=== PATIENT | female | born 1950 | race Caucasian/White ===

== ENCOUNTER 2018-10-18 13:48 | Inpatient (IN) | payer MEDICARE, BC ==
[~2018-10-18] VITALS: Ht 165.1 cm; Wt 113.2 kg
[2018-10-18 14:26] LABS: BASOPHILS ABSOLUTE AUTO 0.06 K/mm3 (0.00-0.23); BASOPHILS PERCENT AUTO 1 % (0-2); EOSINOPHILS ABSOLUTE AUTO 0.07 K/mm3 (0.00-0.68); EOSINOPHILS PERCENT AUTO 1 % (0-6); Hemoglobin 7.9 g/dL (11.5-16.0); IMMATURE GRAN ABSOLUTE AUTO 0.03 K/mm3 (0.00-0.10); IMMATURE GRAN PERCENT AUTO 0 % (0-1); LYMPHOCYTES ABSOLUTE AUTO 1.72 K/mm3 (0.84-5.20); LYMPHOCYTES PERCENT AUTO 17 % (21-46); MONOCYTES ABSOLUTE AUTO 1.41 K/mm3 (0.16-1.47); MONOCYTES PERCENT AUTO 14 % (4-13); Mean Corpuscular HGB Conc 29.3 g/dL (31.5-36.5); Mean Corpuscular Volume 79 fL (80-100); Mean Platelet Volume 9.3 fL (9.1-12.4); NEUTROPHILS PERCENT AUTO 67 % (41-73); Platelet Count 154 K/mm3 (150-400); RDW Coefficient Variation 20.2 % (11.7-14.2); RDW Standard Deviation 56.6 fL (35.1-46.3); Red Blood Cell Count 3.44 M/mm3 (3.80-5.20); White Blood Cell Count 10.09 K/mm3 (4.00-11.30)
[2018-10-18] MEDS ORDERED: Humalog100 UNIT/3 SC (14:51)
[2018-10-18] MEDS ORDERED: Glucophage1000 MG PO (14:52)
[2018-10-18] MEDS ORDERED: OMEPRAZOLE20 MG PO (14:52)
[2018-10-18] MEDS ORDERED: INSDET100 (14:52)
[2018-10-18] MEDS ORDERED: METO25ER PO (14:52)
[2018-10-18] MEDS ORDERED: ATOR10 (14:53)
[2018-10-18] MEDS ORDERED: ASPI325 PO (14:53)
[2018-10-18] MEDS ORDERED: LEVSOD25 PO (14:53)
[2018-10-18] MEDS ORDERED: SERT100 PO (14:53)
[2018-10-18] MEDS ORDERED: NITRSPRAY SL (14:54)
[2018-10-18] MEDS ORDERED: CENTRUM SILVER1 EAC2 PO (14:54)
[2018-10-18] MEDS ORDERED: VITAMIN D31000 UNIT PO (14:54)
[2018-10-18 15:14] LABS: Alanine Aminotransfer (ALT/SGP 35 U/L (12-78); Albumin, Blood 2.6 g/dL (3.4-5.0); Albumin/Globulin Ratio 0.6 (0.8-1.8); Alk Phos 79 U/L (50-136); Anion Gap 9 mmol/L (6-16); Aspartate Aminotrans (AST/SGOT 82 U/L (12-37); Bilirubin, Total 1.1 mg/dL (0.1-1.0); Blood Urea Nitrogen 12 mg/dL (8-24); Bun/Creatinine Ratio 19.3 (12.0-20.0); CO2, Blood 25 mmol/L (21-32); Calcium, Blood 8.4 mg/dL (8.5-10.1); Chloride, Blood 106 mmol/L (98-108); Creatinine, Blood 0.62 mg/dL (0.40-1.00); Globulin, Blood 4.2 g/dL (2.2-4.0); Glomerular Filtration Rate >60 (60-); Glucose, Blood 109 mg/dL (70-99); Potassium, Blood 3.9 mmol/L (3.5-5.5); Sodium, Blood 140 mmol/L (136-145); Total Protein, Blood 6.8 g/dL (6.4-8.2)
[2018-10-18 15:59] LABS: Bilirubin, Urine Neg (Neg); Blood, Urine 1+ (Neg); Glucose Qualitative, Urine Neg (Neg); Ketones, Urine 3+ (Neg); Leukocyte Esterase, Urine 3+ (Neg); Nitrite, Urine Pos (Neg); Protein, Urine 2+ (Neg); Specific Gravity, Urine 1.015 (1.003-1.022); Urobilinogen, Urine NORM (Normal)
[2018-10-18 16:09] LABS: Appearance, Urine Hazy (Clear); Color, Urine Yellow (P-Yellow)
[2018-10-18 16:10] LABS: Bacteria Many /hpf; Mucus Heavy (0-Heavy); Red Blood Cells, Urine 0-2 /hpf (0-2); Squamous Epithelial Cells Few /hpf (Few); White Blood Cells, Urine 25-50 /hpf (0-5)
[2018-10-18 19:28] LABS: Hemoglobin 7.5 g/dL (11.5-16.0)
[2018-10-18 19:40] LABS: Thyroid Stimulating Hormone 3.3 uIU/mL (0.360-4.800)
[2018-10-18 19:44] LABS: Troponin I 1.17 ng/mL (0.000-0.040)
[2018-10-18 19:51] LABS: Percent Saturation 5.7 % (15.0-50.0)
[2018-10-18] MEDS ORDERED: GLIP10 PO (21:57)
[2018-10-18] MEDS ORDERED: Isosorbide Mono30 MG PO (21:57)
--- NOTE | 2018-10-18 23:19 | NUR ---
ASSUMED CARE OF PATIENT AT [facility] 2019 FROM ED RN MYLA Zuleta RN. PATIENT ALERT AND ORIENTED. PATIENT TRANSFER VIA SLIDE SHEET AND 3 STAFF. PATIENT WEAK; L ANKLE FX WITH SPLINT IN PLACE; BEDREST. PATIENT REPORTS PAIN IN L ANKLE AND HEADACHE; MEDICATED PER EMAR; GOOD RESULTS 7 TO A 3. L ANKLE ELEVATED. PATIENT REPORTS MULTIPLE FALLS AT HOME; 3 IN PAST TWO DAYS; HIT HEAD AND HURT ANKLE; S/S CONSULT BECAUSE PATIENT REPORTS SHE NEEDS ASSISTANCE AT HOME; CANNOT GET UP WITHOUT ASSISTANCE; IN 70S FRAIL HIMSELF PER PATIENT. ST ON TELE; OXYGEN SATURATION ABOVE 90% ON ROOM AIR OR CPAP. PATIENT CURRENTLY RECIEVING ONE UNIT RBC; THIS RN STAYED IN ROOM FOR FIRST 15 MINUTES DURING TRANFUSION; NO S/S OF REACTION NOTED; ADMISSION COMPLETED. PATIENT REPORTS INCONTINENT AT BASELINE; ATTENDS IN PLACE; PATIENT TO CALL IF SHE NEEDS NEW ATTENDS. PATIENT CURRENTLY RESTING IN BED; CALL LIGHT IN REACH; BED IN LOWEST POSISTION; BED ALARM ON; WILL CONTINUE TO MONITOR AND ASSESS UNTIL END OF SHIFT.
[2018-10-19 02:26] LABS: Hematocrit 25.8 % (33.0-51.0); Hemoglobin 8.1 g/dL (11.5-16.0)
[2018-10-19 04:13] LABS: International Normalized Ratio 1.24; Prothrombin Time Results 12.9 Sec (9.7-11.5)
--- NOTE | 2018-10-19 06:35 | NUR ---
CALLED DR. ROSS LAST NIGHT TO REPORT ELEVATED TROPONIN; SEE INTERVENTION; ORDERS RECIEVED FOR HEPARIN GTT. PATIENT SLEPT ABOUT SIX HOURS. VSS. WILL CONTINUE TO MONITOR AND ASSESS UNTIL END OF SHIFT.
[2018-10-19 06:37] LABS: BASOPHILS ABSOLUTE AUTO 0.06 K/mm3 (0.00-0.23); BASOPHILS PERCENT AUTO 1 % (0-2); EOSINOPHILS ABSOLUTE AUTO 0.12 K/mm3 (0.00-0.68); EOSINOPHILS PERCENT AUTO 1 % (0-6); Hematocrit 25.2 % (33.0-51.0); Hemoglobin 7.7 g/dL (11.5-16.0); IMMATURE GRAN ABSOLUTE AUTO 0.07 K/mm3 (0.00-0.10); IMMATURE GRAN PERCENT AUTO 1 % (0-1); LYMPHOCYTES ABSOLUTE AUTO 1.66 K/mm3 (0.84-5.20); LYMPHOCYTES PERCENT AUTO 16 % (21-46); MONOCYTES ABSOLUTE AUTO 1.54 K/mm3 (0.16-1.47); MONOCYTES PERCENT AUTO 15 % (4-13); Mean Corpuscular HGB 23.8 pg (26.0-34.0); Mean Corpuscular HGB Conc 30.6 g/dL (31.5-36.5); Mean Corpuscular Volume 78 fL (80-100); Mean Platelet Volume 8.9 fL (9.1-12.4); NEUTROPHILS ABSOLUTE AUTO 7.11 K/mm3 (1.96-9.15); NEUTROPHILS PERCENT AUTO 67 % (41-73); NRBC ABSOLUTE 0.05 K/mm3 (0.00-0.02); NRBC Auto 0.5 /100 WBC (0.0-0.2); Platelet Count 138 K/mm3 (150-400); RDW Coefficient Variation 19.4 % (11.7-14.2); RDW Standard Deviation 53.2 fL (35.1-46.3); Red Blood Cell Count 3.24 M/mm3 (3.80-5.20); White Blood Cell Count 10.56 K/mm3 (4.00-11.30)
[2018-10-19 06:54] LABS: Anion Gap 9 mmol/L (6-16); Blood Urea Nitrogen 15 mg/dL (8-24); Bun/Creatinine Ratio 27.3 (12.0-20.0); CO2, Blood 26 mmol/L (21-32); Chloride, Blood 107 mmol/L (98-108); Creatinine, Blood 0.55 mg/dL (0.40-1.00); Glomerular Filtration Rate >60 (60-); Glucose, Blood 107 mg/dL (70-99); Potassium, Blood 3.8 mmol/L (3.5-5.5); Sodium, Blood 142 mmol/L (136-145)
--- NOTE | 2018-10-19 08:41 | NUR ---
here to see the patient.
[2018-10-19 10:33] LABS: Hematocrit 25.3 % (33.0-51.0); Hemoglobin 7.8 g/dL (11.5-16.0)
[2018-10-19 13:28] LABS: Hematocrit 27.7 % (33.0-51.0); Hemoglobin 8.8 g/dL (11.5-16.0)
--- NOTE | 2018-10-19 16:34 | NUR ---
The pt became dyspneic and hypoxic, spo2 85-86% from the activity of assisted rolling back and forth in bed for attends and linen change following bowel incontinence. Oxygen was applied at 2 l/min for sustained spo2 88% following recovery from the activity.
[2018-10-19 18:11] LABS: Hematocrit 28.6 % (33.0-51.0)
--- NOTE | 2018-10-19 20:31 | NUR ---
ASSUMED CARE OF PATIENT AT [facility] 190 FROM WILLY Zuleta RN. PATIENT ALERT AND ORIENTED X4. PATIENT WEAK; L ANKLE FX WITH SPLINT IN PLACE; BEDREST. PATIENT REPORTS PAIN IN L ANKLE AND HEADACHE; MEDICATED PER EMAR; GOOD RESULTS; L ANKLE ELEVATED. ST ON TELE; OXYGEN SATURATION ABOVE 90% ON 2LPM VIA NC OR CPAP. PATIENT REPORTS INCONTINENT AT BASELINE; ATTENDS IN PLACE; PATIENT TO CALL IF SHE NEEDS NEW ATTENDS. HEPARIN GTT TO BE TURNED OFF AT 0200 PER ORDER FOR EGD IN AM; PHARMACY NOTIFIED. PATIENT CURRENTLY RESTING IN BED; CALL LIGHT IN REACH; BED IN LOWEST POSISTION; BED ALARM ON; WILL CONTINUE TO MONITOR AND ASSESS UNTIL END OF SHIFT.
[2018-10-19 22:09] LABS: Hematocrit 28.2 % (33.0-51.0)
[2018-10-20 02:07] LABS: HBSAG SCREEN Negative (Negative); HEP B CORE AB, TOT Negative (Negative); HEP C VIRUS AB <0.1 (0.0-0.9)
[2018-10-20 03:40] LABS: BASOPHILS ABSOLUTE AUTO 0.07 K/mm3 (0.00-0.23); BASOPHILS PERCENT AUTO 1 % (0-2); EOSINOPHILS ABSOLUTE AUTO 0.28 K/mm3 (0.00-0.68); EOSINOPHILS PERCENT AUTO 3 % (0-6); Hematocrit 28.6 % (33.0-51.0); Hemoglobin 8.9 g/dL (11.5-16.0); IMMATURE GRAN ABSOLUTE AUTO 0.08 K/mm3 (0.00-0.10); IMMATURE GRAN PERCENT AUTO 1 % (0-1); LYMPHOCYTES ABSOLUTE AUTO 2.01 K/mm3 (0.84-5.20); LYMPHOCYTES PERCENT AUTO 19 % (21-46); MONOCYTES PERCENT AUTO 15 % (4-13); Mean Corpuscular HGB 24.7 pg (26.0-34.0); Mean Corpuscular HGB Conc 31.1 g/dL (31.5-36.5); Mean Corpuscular Volume 79 fL (80-100); Mean Platelet Volume 8.7 fL (9.1-12.4); NEUTROPHILS ABSOLUTE AUTO 6.34 K/mm3 (1.96-9.15); NEUTROPHILS PERCENT AUTO 61 % (41-73); NRBC ABSOLUTE 0.04 K/mm3 (0.00-0.02); NRBC Auto 0.4 /100 WBC (0.0-0.2); Platelet Count 147 K/mm3 (150-400); RDW Coefficient Variation 19.1 % (11.7-14.2); RDW Standard Deviation 53.7 fL (35.1-46.3); White Blood Cell Count 10.38 K/mm3 (4.00-11.30)
[2018-10-20 03:56] LABS: International Normalized Ratio 1.21; Prothrombin Time Results 12.6 Sec (9.7-11.5)
[2018-10-20 03:59] LABS: Alanine Aminotransfer (ALT/SGP 43 U/L (12-78); Albumin, Blood 2.5 g/dL (3.4-5.0); Albumin/Globulin Ratio 0.6 (0.8-1.8); Alk Phos 72 U/L (50-136); Anion Gap 7 mmol/L (6-16); Aspartate Aminotrans (AST/SGOT 104 U/L (12-37); Bilirubin, Total 1.2 mg/dL (0.1-1.0); Blood Urea Nitrogen 14 mg/dL (8-24); Bun/Creatinine Ratio 25.4 (12.0-20.0); CO2, Blood 27 mmol/L (21-32); Calcium, Blood 8.1 mg/dL (8.5-10.1); Chloride, Blood 106 mmol/L (98-108); Creatinine, Blood 0.55 mg/dL (0.40-1.00); Glomerular Filtration Rate >60 (60-); Glucose, Blood 141 mg/dL (70-99); Potassium, Blood 3.8 mmol/L (3.5-5.5); Sodium, Blood 140 mmol/L (136-145); Total Protein, Blood 6.5 g/dL (6.4-8.2)
--- NOTE | 2018-10-20 06:05 | NUR ---
EDUARD HAS BEEN NPO SINCE MIDNIGHT; HEPARIN STOPPED PER ORDER. VSS. EDUARD SLEPT ABOUT EIGHT HOURS. WILL CONINTUE TO MONITOR AND ASSESS UNTIL END OF SHIFT.
--- NOTE | 2018-10-20 08:58 | NUR ---
History, Chart, Medications and Allergies reviewed before start of procedure. Lungs clear T/O to Auscultation. Patient confirms NPO status and agrees with scheduled surgery. Pre-Op teaching done. Pt verbalizes understanding.
--- NOTE | 2018-10-20 09:46 | NUR ---
10/20/18 0945 Haroon Barakat Bite Block PlacedPatient to ENDO 1History, Chart, Medications and Allergies reviewed before start of procedure.MONITOR INTACT WITH CONTINUOUS PULSE OXIMETRY AND INTERMITTENT BP.O2 VIA N/C INTACT THROUGHOUT SEDATION/PROCEDURE.See Anesthesia record
--- NOTE | 2018-10-20 13:16 | NUR ---
The pt was incontinent of stool and a lot of urine. She states that she is incontinent at baseline. Dr. Martin was here to see the patient. New orders received. He states that the pt should be receiving a boot today which will be delivered to the hospital for her.
--- NOTE | 2018-10-20 17:08 | NUR ---
The pt was c/o difficulty breathing when I was last in the room. She was hunched over in bed, very low lying. Appeared dyspneic. Assisted to sitting on the side of the bed, dangling her legs, with pillows propped around for support and she reported "immediate relief" and appeared to be breathing better. Tylenol was given for pain in the left ankle.
--- NOTE | 2018-10-21 04:20 | NUR ---
ASSUMED CARE OF PT APPROXIMATELY 190 FROM Song AGUILERA RN. PT A&O X4; PT WEAK; L ANKLE FX W/BOOT IN PLACE; PT C/O OF PAIN AND NUMBNESS IN L ANKLE; MEDICATION GIVEN PER ORDERS AND L LEG ELEVATED ON PILLOW; PT ON BEDREST UNTIL Pt ASSESSMENT; PT C/O SOB ON NC AND PLACED ON CPAP FOR MOST OF SHIFT; SATS AT 93% ON CPAP; HEPARIN INFUSING PER ORDERS; CALL LIGHT W/IN REACH, BED IN LOWEST POSITION; WILL CONTINUE TO MONITOR AND ASSESS UNTIL HANDOFF TO DAYSCAFT RN.
--- NOTE | 2018-10-21 07:20 | NUR ---
[address] Uribe on the phone, explained that Dr. Disla has done the EGD yesterday and gave the all clear for cardiology to proceed with the patient.
[2018-10-21 08:03] LABS: Hematocrit 27.9 % (33.0-51.0); Hemoglobin 8.7 g/dL (11.5-16.0); Mean Corpuscular HGB 24.7 pg (26.0-34.0); Mean Corpuscular HGB Conc 31.2 g/dL (31.5-36.5); Mean Corpuscular Volume 79 fL (80-100); Mean Platelet Volume 9.2 fL (9.1-12.4); NRBC ABSOLUTE 0.02 K/mm3 (0.00-0.02); NRBC Auto 0.2 /100 WBC (0.0-0.2); Platelet Count 145 K/mm3 (150-400); RDW Coefficient Variation 19.4 % (11.7-14.2); RDW Standard Deviation 53.1 fL (35.1-46.3); Red Blood Cell Count 3.52 M/mm3 (3.80-5.20); White Blood Cell Count 10.06 K/mm3 (4.00-11.30)
[2018-10-21 08:28] LABS: Anion Gap 5 mmol/L (6-16); Blood Urea Nitrogen 12 mg/dL (8-24); Bun/Creatinine Ratio 26.7 (12.0-20.0); CO2, Blood 30 mmol/L (21-32); Calcium, Blood 8.2 mg/dL (8.5-10.1); Chloride, Blood 105 mmol/L (98-108); Creatinine, Blood 0.45 mg/dL (0.40-1.00); Glomerular Filtration Rate >60 (60-); Glucose, Blood 155 mg/dL (70-99); Potassium, Blood 3.7 mmol/L (3.5-5.5); Sodium, Blood 140 mmol/L (136-145)
--- NOTE | 2018-10-21 09:28 | NUR ---
The pt states that she is incontinent of urine at baseline. STates that she "dribbles all the time" and wears adult diapers at home due to this. States she would not be able to use a bedpan for measuring urine as she cannot control nor sense urination.
--- NOTE | 2018-10-21 10:48 | NUR ---
Call from heart Aguila that the pt is returning to her room, no interventions.
--- NOTE | 2018-10-21 11:17 | NUR ---
RIGHT RADIAL SITE CHECKED UPON RETURN AND AT EVERY INTERVAL WITH VITAL SIGNS. NO CHANGES FROM INITIAL CHECK OF NO BLEEDING, NO BRUISING, NO SWELLING, NO HEMATOMA, AND PT STATES NO DISCOMFORT. DISTAL PULSE PALPABLE, FINGERS WARM, PINK AND DRY.
--- NOTE | 2018-10-21 13:50 | NUR ---
The pt is much more awake now. She is talking with her who is at the bedside. Vital signs have been stable. TR band on the right wrist remains undeflated, and no signs of bleeding, hematoma, bruising, swelling or impaired circulation. Dital pulse palpable, fingers are pink and warm. The pt denies any pain.
--- NOTE | 2018-10-21 15:10 | NUR ---
TR band deflation started. total of 4 cc removed slowly from the band so far.
--- NOTE | 2018-10-21 15:32 | NUR ---
ADDITIONAL 2 CC REMOVED FROM TR BAND; NO BLEEDING, NO HEMATOMA. BRUISING IS BECOMING VISIBLE ON THE MEDIAL ASPECT, ANTERIOR WRIST UNDERNEATH THE TR BAND. FINGERS ARE PINK, WARM, PULSES PALPABLE. PT DENIES ANY PAIN IN HER RIGHT EXTREMITY. TYLENOL WAS GIVEN EARLIER FOR C/O PAIN IN HER LEFT ANKLE.
--- NOTE | 2018-10-21 16:52 | NUR ---
TR band was removed 1 hour after deflation completed. Apparent bruising under the TR band was not in fact bruising, but just a scant amount of blood under the band. NO bruising, no hematoma, no swelling, no bleeding.
--- NOTE | 2018-10-21 18:08 | NUR ---
summary The pt went for angiogram this morning, returning to her room around 11 am. Vital signs have been stable, and the right wrist access site is recovered, and within normal limits. Clear tegederm dressing was applied to the site after cleansing with cholohexidine at the time of removal of the TR band. The pt worked with physical therapy today, and was able to sit on the side of the bed.She was not successful at standing as the forced immobility of the right arm at the time (post angiogram) and non-weight bearing on the left leg, as well as her dyspnea and weakness made for a challenging combination for mobilization. She has been incontinent of both urine and bowel today. She is able to request the bedpan for bowel, but has poor control of her bowels, even at baseline, she tells me, and has baseline continual urinary incontinence. Appetite fair.
--- NOTE | 2018-10-22 03:19 | NUR ---
ASSUMED CARE OF PT APPROXIMATELY 1909 FROM WILLY RN; R ARM BOARD IN PLACE FOLLOWING TR BAND REMOVAL; NO ACUTE CHANGES; PT STATED SHE WAS TIRED FROM THE DAYS EVENTS; PT IS PLEASANT AND COMPLIANT W/ CARE; PT SLEPT WELL BETWEEN INTERVENTIONS; BED IN LOWEST POSITION; CALL LIGHT W/IN REACH; WILL CONTINUE TO MONITOR AND ASSESS UNTIL HANDOFF TO DAY SHIFT RN.
[2018-10-22 04:26] LABS: BASOPHILS ABSOLUTE AUTO 0.06 K/mm3 (0.00-0.23); BASOPHILS PERCENT AUTO 1 % (0-2); EOSINOPHILS ABSOLUTE AUTO 0.26 K/mm3 (0.00-0.68); EOSINOPHILS PERCENT AUTO 3 % (0-6); Hematocrit 27.8 % (33.0-51.0); Hemoglobin 8.4 g/dL (11.5-16.0); IMMATURE GRAN ABSOLUTE AUTO 0.05 K/mm3 (0.00-0.10); IMMATURE GRAN PERCENT AUTO 1 % (0-1); LYMPHOCYTES ABSOLUTE AUTO 1.14 K/mm3 (0.84-5.20); LYMPHOCYTES PERCENT AUTO 12 % (21-46); MONOCYTES PERCENT AUTO 15 % (4-13); Mean Corpuscular HGB 24.7 pg (26.0-34.0); Mean Corpuscular HGB Conc 30.2 g/dL (31.5-36.5); Mean Corpuscular Volume 82 fL (80-100); Mean Platelet Volume 8.6 fL (9.1-12.4); NEUTROPHILS ABSOLUTE AUTO 6.27 K/mm3 (1.96-9.15); NEUTROPHILS PERCENT AUTO 68 % (41-73); Platelet Count 127 K/mm3 (150-400); RDW Standard Deviation 56.1 fL (35.1-46.3); White Blood Cell Count 9.18 K/mm3 (4.00-11.30)
[2018-10-22 04:52] LABS: Anion Gap 5 mmol/L (6-16); Blood Urea Nitrogen 15 mg/dL (8-24); Bun/Creatinine Ratio 28.9 (12.0-20.0); CO2, Blood 31 mmol/L (21-32); Calcium, Blood 8.1 mg/dL (8.5-10.1); Chloride, Blood 104 mmol/L (98-108); Cholesterol 90 mg/dL (50-200); Creatinine, Blood 0.52 mg/dL (0.40-1.00); Glomerular Filtration Rate >60 (60-); Glucose, Blood 172 mg/dL (70-99); HDL Cholesterol 44 mg/dL (>39); LDL/HDL RATIO 0.8; Low Density Lipoprotein Chol 36 mg/dL (0-110); Sodium, Blood 140 mmol/L (136-145); Triglycerides 51 mg/dL (30-160); Very Low Density Lipoprot Chol 10 mg/dL (6-32)
[2018-10-22 07:45] LABS: Alanine Aminotransfer (ALT/SGP 43 U/L (12-78); Aspartate Aminotrans (AST/SGOT 64 U/L (12-37)
--- NOTE | 2018-10-22 18:52 | NUR ---
SHIFT SUMMARY PT HAS DENIED CHEST PAIN THIS SHIFT. SHE REMAINS WEAK. SHE IS A 2 PERSON ASSIST. PT MEDICAL STATUS AT THIS TIME. VSS. WILL MONITOR UNTIL REPORT TO ONCOMING RN.
--- NOTE | 2018-10-23 06:41 | NUR ---
SHIFT SUMMARY PATIENT PLEASENT AND COOPERATIVE THROUGHOUT THE NIGHT. PATIENT MEDICATED FOR PAIN PER EMAR. PATIENT APPEARED TO SLEEP WELL LAST NIGHT. PATIENT USED HER CPAP THROUGHOUT THE NIGHT, CONTINUOUS BIOX IN PLACE. BOOT IN PLACE TO LEFT FOOT. PATIENT CURRENTLY RESTING IN BED AND WATCHING TV THIS MORNING, PATIENT DENIES ANY NEEDS. BED IN LOW, LOCKED POSITION, AND CALL LIGHT WITHIN REACH. WILL CONTINUE TO MONITOR PATIENT AND REPORT TO ONCOMING RN.
[2018-10-23 09:58] LABS: Anion Gap 8 mmol/L (6-16); Blood Urea Nitrogen 20 mg/dL (8-24); Bun/Creatinine Ratio 46.1 (12.0-20.0); CO2, Blood 27 mmol/L (21-32); Chloride, Blood 104 mmol/L (98-108); Creatinine, Blood 0.43 mg/dL (0.40-1.00); Glomerular Filtration Rate >60 (60-); Glucose, Blood 231 mg/dL (70-99); Potassium, Blood 4.1 mmol/L (3.5-5.5); Sodium, Blood 139 mmol/L (136-145)
[2018-10-23 12:49] LABS: Hematocrit 27.6 % (33.0-51.0); Hemoglobin 8.5 g/dL (11.5-16.0); Mean Corpuscular HGB 25.1 pg (26.0-34.0); Mean Corpuscular HGB Conc 30.8 g/dL (31.5-36.5); Mean Corpuscular Volume 82 fL (80-100); Mean Platelet Volume 9.2 fL (9.1-12.4); Platelet Count 133 K/mm3 (150-400); RDW Coefficient Variation 20.9 % (11.7-14.2); RDW Standard Deviation 57.3 fL (35.1-46.3); Red Blood Cell Count 3.38 M/mm3 (3.80-5.20); White Blood Cell Count 9.75 K/mm3 (4.00-11.30)
--- NOTE | 2018-10-23 17:44 | NUR ---
SHIFT SUMMARY PT ALERT AND ORIENTED. VS STABLE. O2 SATS REMAIN ABOVE 90% ON 2L NC. LS CRACKLES IN THE BASES AND INCREASE IN DOSE OF LASIX THIS SHIFT PER DR. ESCALANTE. PT DENIES ANY PAIN. PT REFITTED WITH BOOT TO LEFT LOWER LEG. PT REPOSITIONING HERSELF IN BED AND DANGLES ON SIDE OF BED FOR ALL MEALS. PLAN FOR DC TO SNF TOMORROW. WILL CONTINUE TO MONITOR AND REPORT TO ONCOMING RN. CALL LIGHT IN REACH.
[2018-10-24 04:06] LABS: Anion Gap 6 mmol/L (6-16); Blood Urea Nitrogen 24 mg/dL (8-24); Bun/Creatinine Ratio 46.6 (12.0-20.0); CO2, Blood 30 mmol/L (21-32); Calcium, Blood 8.5 mg/dL (8.5-10.1); Chloride, Blood 102 mmol/L (98-108); Creatinine, Blood 0.52 mg/dL (0.40-1.00); Glomerular Filtration Rate >60 (60-); Glucose, Blood 165 mg/dL (70-99); Potassium, Blood 3.9 mmol/L (3.5-5.5); Sodium, Blood 138 mmol/L (136-145)
--- NOTE | 2018-10-24 07:12 | NUR ---
PCU NOC SHIFT SUMMARY PATIENT REMAIENED ALERT AND ORIENTED X4 T/O SHIFT. L/S CLEAR - PATIENT WORE BIPAP T/O NOC. VSS. PATIENT DENIES AND NEEDS AT THIS TIME. REPORTED TO DAYSNHAN REESE.
--- NOTE | 2018-10-24 15:09 | NUR ---
UPDATE PT ALERT AND ORIENTED. VS STABLE. O2 SATS REMAIN ABOVE 90% ON 2L NC. PT USES CPAP AT NIGHT. WHILE WORKING WITH PHYSICAL THERAPY TODAY, BUT GOT TACHYPNEIC AND DESATURATED TO LOW 80'S AND TOOK MINUTES TO RECOVER. LS CRACKLES IN THE BASES. PT REPOSITIONING HERSELF IN BED. PT IS INCONTINENT AT TIMES, BUT IS ABLE TO TELL STAFF WHEN NEEDING HER ATTENDS CHANGED. PT TO TRANSFER TO MEDICAL FLOOR. REPORT CALLED AND PT WILL BE TAKEN UP BY BED.
--- NOTE | 2018-10-24 16:13 | NUR ---
PT TRANSFERRED FROM PCU AND WAS ASSISTED TO BED X 3. PT WAS ORIENTED TO ROOM, CALL LIGHT AND NURSING STAFF. HER IS AT THE BEDSIDE. SHE IS RESTING AND ABLE TO MAKE HER NEEDS KNOWN.
--- NOTE | 2018-10-24 18:02 | NUR ---
SHIFT SUMMARY: SINCE PT ARRIVED FROM PCU SHE HAS BEEN PLEASANT AND COOPERATIVE WITH CARE. SHE HAS NO C/O PAIN AND IS ABLE TO MAKE HER NEEDS KNOWN. HER CAME TO VISIT BUT ONLY STAYED FOR A SHORT TIME. SHE IS RESTING IN BED AND USES CALL LIGHT FOR HELP WHEN NEEDED.
--- NOTE | 2018-10-25 03:37 | NUR ---
DYSPNEA/TACHYCARDIA PT HAS RESTED FOR MOST OF THE NIGHT WITHOUT ANY EVENT UP UNTIL ABOUT 0240. PT WAS USING BED PEDROZA AND BECAME VERY SOB, AND TACHYCARDIC. WHEN I WENT INTO THE ROOM TO ASSESS PT SHE WAS IN RESPIRATIRY DISTRESS, AND GASPING. PT HAD REMOVED HER CPAP DUE TO PANIC AND HER SATS WERE DOWN 75%. LUNGS WERE INCREASINGLY COURSE. PT WAS TACYCARDIC, AND DIAPHORETIC. PT WAS A/OX4, AND WAS TALKING TO ME. SHE DENIED PAIN OR CHEST PAIN. RT IMMEDIATELY CALLED TO ASSESS PT RESPIRATORY STATUS. CHANELL HOOK, RT STATED THAT HER LUNGS HAVE BECOME MORE COURSE AND CRACKLING. BP AND HR INCREASED. BG HIGH, BUT WITHIN PT NORM. O2 INCREASED FROM 2L TO 15L AND THEN DOWN TO 10. PT POSITIVLEY RESPONDED TO THIS O2 INCREASE AND HER RESPIRATIONS AND HR DECREASED. DR. PAEZ NOTIFIED OF PT RESPIRATORY DISTRESS AND TACHYCARDIA AT 0245. STAT CHEST X-RAY, EKG AND IV LOPRESSOR ORDERED. 0305 STAT CHEST X-RAY AND EKG DONE. EKG SHOWED SINUS TACHYCARDIA. PT VITALS IMPROVED FROM FIRST READING. PT CLINICALLY APPEARED TO BE IMPROVING FROM THE ABOVE INTERVENTIONS. 0315 DR. PAEZ IN ROOM TO ASSESS PT. HE STATES THAT SHE APPEARS BETTER, HOWEVER X-RAY WAS REVIEWED WHICH SHOWED WORSENING FROM PRIOR X-RAY. ORDER FOR TRANSFER TO ICU FOR CLOSER MONITORING AND BIPAP. IV LOPRESSOR DC'D BY JEANNINE BP AND HR IMPROVED. 0320 PT STATES THAT SHE NOW FEELS A LITTLE BETTER, SHE DOES NOT APPEAR IN ACUTE DISTRESS. PT TO BE TRANSFERRED TO ICU 10. CALL PLACED TO DISTRICT ADVISER. BELONGINGS WITH PT. PT ACCOMPAINED BY JONATHON AUGUSTIN RN AND CHANELL HOOK RT. BELONGINGS WITH PT.
[2018-10-25 05:19] LABS: Hematocrit 27.2 % (33.0-51.0); Hemoglobin 8.2 g/dL (11.5-16.0); Mean Corpuscular HGB 25.1 pg (26.0-34.0); Mean Corpuscular HGB Conc 30.1 g/dL (31.5-36.5); Mean Corpuscular Volume 83 fL (80-100); Mean Platelet Volume 9.6 fL (9.1-12.4); Platelet Count 130 K/mm3 (150-400); RDW Coefficient Variation 21.5 % (11.7-14.2); RDW Standard Deviation 61.5 fL (35.1-46.3); Red Blood Cell Count 3.27 M/mm3 (3.80-5.20); White Blood Cell Count 12.03 K/mm3 (4.00-11.30)
[2018-10-25 05:25] LABS: Source, Urine Catheter
[2018-10-25 05:28] LABS: Bilirubin, Urine Neg (Neg); Blood, Urine Neg (Neg); Glucose Qualitative, Urine Neg (Neg); Ketones, Urine 1+ (Neg); Leukocyte Esterase, Urine 1+ (Neg); Nitrite, Urine Neg (Neg); Protein, Urine 3+ (Neg); Specific Gravity, Urine 1.015 (1.003-1.022); Urobilinogen, Urine 1+ (Normal)
[2018-10-25 05:29] LABS: Anion Gap 7 mmol/L (6-16); Blood Urea Nitrogen 27 mg/dL (8-24); Bun/Creatinine Ratio 50.1 (12.0-20.0); CO2, Blood 30 mmol/L (21-32); Calcium, Blood 8.5 mg/dL (8.5-10.1); Chloride, Blood 101 mmol/L (98-108); Creatinine, Blood 0.54 mg/dL (0.40-1.00); Glomerular Filtration Rate >60 (60-); Glucose, Blood 187 mg/dL (70-99); Potassium, Blood 4.2 mmol/L (3.5-5.5); Sodium, Blood 138 mmol/L (136-145)
[2018-10-25 05:32] LABS: Color, Urine Yellow (P-Yellow)
[2018-10-25 05:33] LABS: Appearance, Urine Clear (Clear)
[2018-10-25 05:38] LABS: Bacteria Few /hpf; Mucus Light (0-Heavy); Red Blood Cells, Urine Not Seen /hpf (0-2); Squamous Epithelial Cells Mod /hpf (Few)
--- NOTE | 2018-10-25 05:51 | NUR ---
ASSUMED PT CARE/ END OF SHIFT SUMMARY PT TRANSFERRED TO ICU FROM MEDICAL FLOOR SECONDARY TO ACUTE SOB WITH CRACKLES NOTED T/O ALL LOBES. PT ARRIVED ON CPAP; TACHYPNEIC, LABORED BREATHING WITH USE OF ACCESSORY MUSCLES. CPAP AT 10 CM H20 WITH O2 AT 40%; BIOX 96%. PT IS NOTED TO HAVE A DRY, NON-PRODUCTIVE COUGH. PT ALERT AND ORIENTED AND ABLE TO MAKE HER NEEDS KNOWN. DR. PAEZ ENTERED ORDERS FOR 25G ALBUMIN FOLLOWED BY 80MG OF LASIX. HOWEVER, PT ARRIVED WITH ONE IV THAT WAS NOT PATENT TO HER LEFT FOREARM; D/C'D IV AND INITIATED TWO 18G; ONE TO LEFT AC AND ONE TO RIGHT UPPER ARM. ALBUMIN INFUSED WHILE DE SOUZA CATH WAS INSERTED; 16F TEMP DE SOUZA PROBE. PT IS AFEBRILE. UA SENT TO LAB. LASIX ADMINSITERED WITH NO ADVERSE SIDE EFFECTS NOTED; WILL CONTINUE TO MONITOR STRICT OUTPUT. CALLED , STORM, FOR AN UPDATE REGARDING CHANGE OF STATUS. PT RESTING WITH CALL LIGHT IN REACH. WILL CONTINUE TO MONITOR UNTIL REPORT IS HANDED OFF TO ONCOMING RN.
--- NOTE | 2018-10-25 08:00 | NUR ---
BEGINNING OF SHIFT Assumed care at 0700. Bedside report received from Moses REESE. Pt on CPAP. Shift assessment completed. CPAP taken off pt. Pt placed on 10 LPM oxymizer. Titrated down to 5 LPM. SpO2 97%. RR 28-32. Pt able to speak in 3-4 word sentences. Pt able to assist with repositioning in bed. SR per heart monitor.
--- NOTE | 2018-10-25 10:15 | NUR ---
PLACED BACK ON CPAP Pt off CPAP for 2 hours. After repositioning in bed several times for attends change and bedpan, pt became tachypnic and short of breath. RR 36-40. Pt speaking in 1-2 word sentences. SpO2 97% on 5 LPM Oxymizer. CPAP placed back on pt. 35% FiO2. SpO2 remained 95% or greater. RT Shravan notified.
--- NOTE | 2018-10-25 13:57 | NUR ---
UPDATE Pt remained on CPAP until lunch time. Pt again given break from mask. Pt off mask for 1.5 hours. Oxymizer switched to NC. O2 titrated down to 4 LPM. SpO2 95% or greater. Pt stated she needed to use bedpan. Pt placed back on CPAP and tolerated bedpan well. Pt remains on CPAP at this time. Awake in bed, watching TV.
--- NOTE | 2018-10-25 17:22 | NUR ---
SUMMARY Pt currently on 2 LPM NC. Pt wore CPAP for total of 6 hours this shift. Pt has not gotten OOB this shift. SR per monitor, no events noted. VSS. Only 280 mL urine output this shift. Bed in lowest position. Call light in reach. Pt denies need at this time. Will continue to closely monitor until care handoff and bedside report with oncoming RN.
--- NOTE | 2018-10-25 20:00 | NUR ---
ASSUMED CARE OF PT AT 1915. REPORT RECEIVED. PT PRESENTS IN BED. USING CPAP WITH 10 CM PRESSURE. PT TOLERATING THIS WELL. ALERT AND ORIENTED. PLEASANT AND COOPERATIVE WITH CARE AND ASSESSMENT. WILL REVIEW CHART AND PLAN OF CARE.
--- NOTE | 2018-10-26 00:15 | NUR ---
PT HAS BEEN INCONTINENT TO STOOL TIMES ONE THIS NIGHT. IS ABLE TO INFORM STAFF WHEN SHE IS INCONTINENT. HAVE WORKED WITH PT ON INCENTIVE SPIROMETERY. PT ONLY ABLE TO ACHIEVE 500 ML. PT NEEDS MUCH INCOURAGEMENT TO DO SPIROMETRY. PT REQUESTS TO NOT STAY TURNED SAYING THAT IT HURTS HER BACK. TEACHING DONE ON PROTECTION OF SKIN INTEGRETY. WILL CONTINUE TO MONITOR PT.
--- NOTE | 2018-10-26 04:01 | NUR ---
CALLED REPORT TO MARY ANN SNOW FOR TRANSPORT TO ROOM PCU 3. REPORT GIVEN IN SBAR FASHION. ALLOWED FOR QUESTIONS. PT ACCEPTING OF TRANSFER.
[2018-10-26 04:16] LABS: BASOPHILS ABSOLUTE AUTO 0.03 K/mm3 (0.00-0.23); BASOPHILS PERCENT AUTO 0 % (0-2); EOSINOPHILS ABSOLUTE AUTO 0.06 K/mm3 (0.00-0.68); EOSINOPHILS PERCENT AUTO 1 % (0-6); Hemoglobin 7.8 g/dL (11.5-16.0); IMMATURE GRAN PERCENT AUTO 1 % (0-1); LYMPHOCYTES ABSOLUTE AUTO 0.95 K/mm3 (0.84-5.20); LYMPHOCYTES PERCENT AUTO 8 % (21-46); MONOCYTES ABSOLUTE AUTO 1.71 K/mm3 (0.16-1.47); MONOCYTES PERCENT AUTO 14 % (4-13); Mean Corpuscular HGB 25.7 pg (26.0-34.0); Mean Corpuscular HGB Conc 31.2 g/dL (31.5-36.5); Mean Corpuscular Volume 82 fL (80-100); Mean Platelet Volume 9.1 fL (9.1-12.4); NEUTROPHILS ABSOLUTE AUTO 9.76 K/mm3 (1.96-9.15); NEUTROPHILS PERCENT AUTO 77 % (41-73); Platelet Count 134 K/mm3 (150-400); RDW Coefficient Variation 21.9 % (11.7-14.2); RDW Standard Deviation 62.1 fL (35.1-46.3); Red Blood Cell Count 3.04 M/mm3 (3.80-5.20); White Blood Cell Count 12.61 K/mm3 (4.00-11.30)
[2018-10-26 04:33] LABS: Anion Gap 6 mmol/L (6-16); Blood Urea Nitrogen 36 mg/dL (8-24); Bun/Creatinine Ratio 50.9 (12.0-20.0); CO2, Blood 30 mmol/L (21-32); Calcium, Blood 8.5 mg/dL (8.5-10.1); Chloride, Blood 101 mmol/L (98-108); Creatinine, Blood 0.71 mg/dL (0.40-1.00); Glomerular Filtration Rate >60 (60-); Glucose, Blood 146 mg/dL (70-99); Potassium, Blood 4.1 mmol/L (3.5-5.5); Sodium, Blood 137 mmol/L (136-145)
--- NOTE | 2018-10-26 04:46 | NUR ---
ASSUMPTION OF CARE REPORT RECIEVED AT APPROX 0400. PATIENT TRANSFERED TO ROOM AT APPROX 0412 AND CARE OF PATIENT ASSUMED AT THAT TIME. PATIENT SETTLED IN AND ORIENTED TO THE ROOM, UNIT, CAN CALL LIGHT. PATIENT PLACED BACK THE VISION BIPAP WITH CPAP SETTINGS PER PATIENT REQUEST. PATIENT RESTING IN BED ATTEMPTING TO SLEEP. PATIENT DENIES ANY NEEDS AT THIS TIME. WILL CONTINUE TO MONITOR.
--- NOTE | 2018-10-26 07:31 | NUR ---
SHIFT SUMMARY PATIENT APPEARED TO SLEEP WELL THROUGHOUT THE REST OF THE MORNING. PATIENT USING THE CPAP SETTINGS ON THE BIPAP. CONTINUOUS BIOX IN PLACE. PATIENT OFF CPAP FOR PILLS THIS MORNING BUT REQUESTED TO GO RIGHT BACK ON THE CPAP WHEN SHE WAS DONE. PATIENT STATED SHE DOES NOT FEEL LIKE HER BREATHING IS GETTING MUCH BETTER. CONTINUOUS BIOX IN PLACE. REPORT GIVEN TO ONCOMING RN.
--- NOTE | 2018-10-26 07:47 | NUR ---
AM NOTE. ASSUMED CARE OF PT APROX 0700. PT IS A&Ox4. PT WAS TRANSFERED TO PCU D/T RESP DISTRESS FROM ICU. PT IS CURRENTLY ON CPAP WITH FIO2 OF 30%. PT'S RR IS IN THE 30'S, BUT PT DOES NOT APPEARE TO BE IN DISTRESS AT THIS TIME. L/S FINE CRACKLES NOTED ON THE RIGHT SIDE AND COARSE CRACKLES NOTED ON THE LEFT. PT DENIES ANY CHEST PAIN/PRESSURE AT THIS TIME. EDEMA IS PRESENT TO THE BILAT UPPER THIGHS, ABD/BACK/BUTTOCKS HAS DEPENDENT EDEMA AND MOISE HAS NONPITTING EDEMA. PT HAS TOE TOUCH PRECAUTIONS TO THE LEFT LEG, SUPPORTIVE BOOT IS NOTED IN PLACE ON THE LEFT LEG. CALL LIGHT IN REACH, WILL CONTINUE TO MONITOR.
--- NOTE | 2018-10-27 02:47 | NUR ---
ASSUMED CARE APPROXIMATELY 191 FROM CHARLIRN; PT IS USING CPAP SETTINGS ON BIPAP; PT REQUESTED MASK FOR ENTIRE SHIFT; USED NC ONLY BRIEFLY DURING ORAL MEDICATION ADMINISTRATION; PT NOT VERY CONVERSIVE THIS SHIFT; STATES SHE IS FATIGUED; PT USING EARPLUGS FOR SLEEPING; SLEPT BRIEFLY ON AND OFF DURING NIGHT; PT EDUCATED ON IMPORTANCE OF NOTIFYING STAFF IF IN NEED OF BRIEF CHANGE TO PREVENT SKIN BREAKDOWN; CALL LIGHT W/IN REACH; BED IN LOWEST POSITION; WILL CONTINUE TO MONITOR AND ASSESS UNTIL HANDOFF TO DAY SHIFT RN.
[2018-10-27 08:27] LABS: Hematocrit 26.7 % (33.0-51.0); Hemoglobin 8.1 g/dL (11.5-16.0); Mean Corpuscular HGB 24.5 pg (26.0-34.0); Mean Corpuscular HGB Conc 30.3 g/dL (31.5-36.5); Mean Corpuscular Volume 81 fL (80-100); Mean Platelet Volume 9.6 fL (9.1-12.4); Platelet Count 133 K/mm3 (150-400); RDW Coefficient Variation 22.3 % (11.7-14.2); RDW Standard Deviation 63.3 fL (35.1-46.3)
[2018-10-27 09:00] LABS: Anion Gap 7 mmol/L (6-16); Blood Urea Nitrogen 45 mg/dL (8-24); Bun/Creatinine Ratio 58.4 (12.0-20.0); CO2, Blood 27 mmol/L (21-32); Calcium, Blood 8.7 mg/dL (8.5-10.1); Chloride, Blood 103 mmol/L (98-108); Creatinine, Blood 0.77 mg/dL (0.40-1.00); Glomerular Filtration Rate >60 (60-); Glucose, Blood 129 mg/dL (70-99); Potassium, Blood 3.9 mmol/L (3.5-5.5); Sodium, Blood 137 mmol/L (136-145)
--- NOTE | 2018-10-27 09:20 | NUR ---
AM NOTE. ASSUMED CARE OF PT APROX 0700. PT IS A&Ox4 AND 2P W/FWW TO THE RECLINER/BSC. PT REQUESTED TO GET UP TO THE RECLINER TO HELP WITH HER BREATHING THIS AM. PT'S L/S CRACKLES T/O AND TIGHT. PT WAS GIVEN BREATHING TREATMENT AND RT SWITCHED HER SETTTINGS FROM CPAP TO BIPAP. PROVIDER WAS CALLED. PT IS NSR IN THE 80'S-90'S PER MAGICIAN/ILLUSIONIST. PT'S AT THE BEDSIDE THIS AM. PT'S EDEMA APPEARES TO HAVE INCREASED FROM YESTERDAY. PT'S UPPER THIGHS ARE VERY TIGHT AND HARD. PT IS ON 1.5 L FLUID RESTRICTION. CALL LIGHT IN REACH, WILL CONTINUE TO MONITOR.
[2018-10-27 09:23] LABS: Vancomycin, Trough 24.4 ug/mL (5.0-10.0)
[2018-10-27 09:33] LABS: BASOPHILS PERCENT MAN 0 % (0-2); EOSINOPHILS ABSOLUTE MAN 0.14 K/mm3 (0.00-0.68); EOSINOPHILS PERCENT MAN 1 % (0-6); LYMPHOCYTES ABSOLUTE MAN 0.85 K/mm3 (0.84-5.20); LYMPHOCYTES PERCENT MAN 6 % (21-46); MONOCYTES ABSOLUTE MAN 1.98 K/mm3 (0.16-1.47); MONOCYTES PERCENT MAN 14 % (4-13); NEUTROPHILS ABSOLUTE MAN 11.21 K/mm3 (1.96-9.15); SEG NEUTROPHILS PERCENT MAN 79 % (41-73); TOTAL CELLS COUNTED 100
[2018-10-27 16:10] LABS: Vancomycin, Random 21.6 ug/mL
--- NOTE | 2018-10-27 18:25 | NUR ---
SHIFT SUMMARY. PT HAS BEEN UP IN RECLINER CHAIR MOST OF THE SHIFT. PT HAS BEEN ON BIPAP MOST OF THE SHIFT. PT'S VS HAVE BEEN STABLE. PT'S URINARY OUTPUT WAS 275 FOR THE SHIFT. PT'S AT THE BEDSIDE OFF AND ON T/O THE DAY. PT'S WORK OF BREATHING HAS IMPROVED WITH BIPAP SETTINGS AND PT APPEARES TO BE MORE RELAXED. PT DENIES ANY CHEST PAIN/PRESSURE OR N/V/D. PT HAD BM IN HER ATTENDS AND DID NOT TELL STAFF, PT STATED THAT SHE KNEW SHE HAD TO HAVE BM BUT DID NOT WANT TO GET UP. THE BM WAS PARTIALLY DRIED TO THE PT'S SKIN, PT WAS EDUCATED ON SKIN CARE, PREVENTION OF SKIN BREAKDOWN AND PRESSURE ULCER PREVENTION. CALL LIGHT IN REACH, BED IS LOCKED AND LOW WILL CONTINUE TO MONITOR
[2018-10-28 04:15] LABS: BASOPHILS ABSOLUTE AUTO 0.03 K/mm3 (0.00-0.23); BASOPHILS PERCENT AUTO 0 % (0-2); EOSINOPHILS ABSOLUTE AUTO 0.01 K/mm3 (0.00-0.68); EOSINOPHILS PERCENT AUTO 0 % (0-6); Hematocrit 25.7 % (33.0-51.0); Hemoglobin 7.9 g/dL (11.5-16.0); IMMATURE GRAN ABSOLUTE AUTO 0.11 K/mm3 (0.00-0.10); IMMATURE GRAN PERCENT AUTO 1 % (0-1); LYMPHOCYTES ABSOLUTE AUTO 0.74 K/mm3 (0.84-5.20); LYMPHOCYTES PERCENT AUTO 5 % (21-46); MONOCYTES ABSOLUTE AUTO 1.57 K/mm3 (0.16-1.47); MONOCYTES PERCENT AUTO 10 % (4-13); Mean Corpuscular HGB 25.1 pg (26.0-34.0); Mean Corpuscular HGB Conc 30.7 g/dL (31.5-36.5); Mean Corpuscular Volume 82 fL (80-100); Mean Platelet Volume 9.8 fL (9.1-12.4); NEUTROPHILS ABSOLUTE AUTO 12.58 K/mm3 (1.96-9.15); NEUTROPHILS PERCENT AUTO 84 % (41-73); Platelet Count 148 K/mm3 (150-400); RDW Coefficient Variation 22.5 % (11.7-14.2); RDW Standard Deviation 63.5 fL (35.1-46.3); Red Blood Cell Count 3.15 M/mm3 (3.80-5.20); White Blood Cell Count 15.04 K/mm3 (4.00-11.30)
[2018-10-28 05:12] LABS: Albumin, Blood 2.1 g/dL (3.4-5.0); Anion Gap 8 mmol/L (6-16); Blood Urea Nitrogen 55 mg/dL (8-24); Bun/Creatinine Ratio 50.5 (12.0-20.0); CO2, Blood 29 mmol/L (21-32); Calcium, Blood 8.8 mg/dL (8.5-10.1); Chloride, Blood 101 mmol/L (98-108); Creatinine, Blood 1.09 mg/dL (0.40-1.00); Glomerular Filtration Rate 53 (60-); Glucose, Blood 169 mg/dL (70-99); Phosphorus, Blood 4.4 mg/dL (2.5-4.9); Potassium, Blood 4.1 mmol/L (3.5-5.5); Sodium, Blood 138 mmol/L (136-145); Vancomycin, Random 17.7 ug/mL
--- NOTE | 2018-10-28 05:38 | NUR ---
PT HAD NO ACUTE CHANGES T/O NIGHT. BIPAP IN PLACE FOR MAJORITY OF NIGHT; SATS 90-92 W/BIPAP PER RT SETTINGS. SATS NOTED TO DROP TO 90% ON RA. PT DOES TAKE APPX 5 MINUTES TO RECOVER FROM ACTIVITY. LUNGS DIM W/FINE CRACKLES IN BASES, PT HAS WEAK NON PROD COUGH. PT HAD NO C/O CP/PRESSURE, HR SINUS/SINUS TACH 90-LOW 100'S PER TELE MONITOR. PT MED FOR L FOOT/ANKLE PAIN X1. FOOT OF CAM BOOT OPENED UP WHILE IN BED TO RELIEVE PRESSURE FROM TOP OF FOOT. PO INTAKE MINIMAL, 1000ML FLUID RESTRICTION MAINTAINED. PT NEEDING ENCOURAGEMENT TO REPOSITION WHILE IN BED. PT IS USING CALL LIGHT FOR ASSISTANCE, WILLL CONT VIRGIL MONITOR UNTIL REP GIVEN TO ONCOMING RN.
--- NOTE | 2018-10-28 12:19 | NUR ---
Initial Visit: Palliative Care Consult for Advanced Care Planning, and AD/POLST. Pt is A&O and reports 8/10 pain in her chest. She also reports 7/7 anxiety due to her dyspnea. Pt's Humberto, daughter Radha, and marvin Camacho present during visit. Engaged in therapeutic discussion regarding Advanced Care Planning. Pt lives at home with her and does not practice any sikhism. Pt has 3 daughters one of whom is present. Humberto reports at baseline Pt is ambulatory with a walker and independent of her ADL's. Pt at baseline is able to ambulate approximately 20 feet before becoming dyspneic and requiring a few moments of rest to recover. Educated on disease process including trajectory of disease. Encouraged routine conversations with 3rd pressman and PCP regarding disease process in order to plan accordingly. Discussed AD/PLST and educated on life sustaining measures. Educated on each section to complete and the importance of a health care plastic products sales representative. V/U made by Pt and family. Left both AD and POLST for Pt to consider. Discussed Dr Gaxiola's plan to help manage anxiety and Pt is agreeable. Spoke with bedside nurse Barbara and discussed case. Palliative Care will remain available.
--- NOTE | 2018-10-28 14:09 | NUR ---
ASSUMED CARE REPORT FROM MARY ANN ESTRELLA. PATIENT ASLEEP WITH BIPAP MASK IN PLACE.
--- NOTE | 2018-10-28 15:33 | NUR ---
MD VISIT DR. BURNETTE IN. FAMILY UPDATED WILL TRANSFER TO ICU 12
--- NOTE | 2018-10-28 16:38 | NUR ---
SUMMARY WITH INITIAL ASSESSMENT, PATIENT RR WAS 36-38 BPM WHILE SLEEPING WHILE ON BIPAP. BIPAP SETTINGS WERE 16/9 RATE 12 FI02 40%. BREAK WITH NC GIVEN WHILE ORAL CARE PERFORMED AND FACE WASHED. PATIENT INCREASINGLY ANXIOUS WITH BIOX DROPPING TO 79%. BIPAP MASK PLACED BACK ON AND PATIENT COACHED TO SLOW BREATHING. BIOX 88% RT RESPONDED TO ASSIST WITH ADJUSTYMENT OF MASK AND DR. DUMAS WAS CONSULTED WITH REQUEST TO MOVE PATIENT TO ICU. DR. DUMAS RESPONDED TO SEE PATIENT. ORDERS TO TRANSFER TO ICU. TRANSFERRED TO ICU 12. STOOL CLEANED, LINEN CHANGED. ORDERS FOR MORPHINE IV 2 MG FOR AIR HUNGER AND BIPAP FIO2 INCREASED TO 60% BY DR. DUMAS. OTHER ORDERS REC'D AND IMPLEMENTED. PICC BEING PLACED NOW BY MARY ANN HUGGINS.
--- NOTE | 2018-10-28 18:42 | NUR ---
200 CC DARK CLOUDY URINE FOR SHIFT. BUMEX BID. METOLAZONE GIVEN. HAVE NOT NEEDED TO START LEVOPHED. NS TKO WITH ZOSYN. PATIENT IS MORE RELAXED AFTER LAST KLONOPIN DOSE. RR RATE REMAINS IN 30'S WHILE SLEEPING. WILL UPDATE DR. DUMAS AND REPORT TO RAILWAY TRACK PLANT OPERATOR RN
--- NOTE | 2018-10-28 19:04 | NUR ---
MD VISIT DR. DUMAS IN
--- NOTE | 2018-10-28 19:04 | NUR ---
REPORT GIVEN TO MARY ANN GUSMAN
--- NOTE | 2018-10-28 20:22 | NUR ---
PT RESTING IN BED. A/O X4 AND FOLLOWING COMMANDS. PT IS ON BIPAP. ABLE TO TAKE PO MEDS WITH WATER WITHOUT DIFFICULTY WITH SHORT BREAK FROM BIPAP MASK. PT HAS IMMOBILIZING BOOT TO LLE. SEE ASSESSMENT. NO SIGN OF DISTRESS. CALL LIGHT IN REACH.
[2018-10-29 04:11] LABS: BASOPHILS ABSOLUTE AUTO 0.03 K/mm3 (0.00-0.23); BASOPHILS PERCENT AUTO 0 % (0-2); EOSINOPHILS ABSOLUTE AUTO 0.05 K/mm3 (0.00-0.68); EOSINOPHILS PERCENT AUTO 0 % (0-6); Hematocrit 24.1 % (33.0-51.0); Hemoglobin 7.5 g/dL (11.5-16.0); IMMATURE GRAN ABSOLUTE AUTO 0.12 K/mm3 (0.00-0.10); IMMATURE GRAN PERCENT AUTO 1 % (0-1); LYMPHOCYTES ABSOLUTE AUTO 0.96 K/mm3 (0.84-5.20); LYMPHOCYTES PERCENT AUTO 7 % (21-46); MONOCYTES ABSOLUTE AUTO 1.54 K/mm3 (0.16-1.47); MONOCYTES PERCENT AUTO 11 % (4-13); Mean Corpuscular HGB 25.8 pg (26.0-34.0); Mean Corpuscular HGB Conc 31.1 g/dL (31.5-36.5); Mean Corpuscular Volume 83 fL (80-100); Mean Platelet Volume 9.6 fL (9.1-12.4); NEUTROPHILS ABSOLUTE AUTO 11.84 K/mm3 (1.96-9.15); NEUTROPHILS PERCENT AUTO 82 % (41-73); Platelet Count 150 K/mm3 (150-400); RDW Coefficient Variation 22.5 % (11.7-14.2); RDW Standard Deviation 65.1 fL (35.1-46.3); Red Blood Cell Count 2.91 M/mm3 (3.80-5.20); White Blood Cell Count 14.54 K/mm3 (4.00-11.30)
[2018-10-29 04:28] LABS: Albumin, Blood 1.9 g/dL (3.4-5.0); Anion Gap 8 mmol/L (6-16); Blood Urea Nitrogen 68 mg/dL (8-24); Bun/Creatinine Ratio 51.1 (12.0-20.0); CO2, Blood 28 mmol/L (21-32); Calcium, Blood 8.4 mg/dL (8.5-10.1); Chloride, Blood 103 mmol/L (98-108); Creatinine, Blood 1.33 mg/dL (0.40-1.00); Glomerular Filtration Rate 42 (60-); Glucose, Blood 89 mg/dL (70-99); Sodium, Blood 139 mmol/L (136-145); Vancomycin, Random 24.4 ug/mL
--- NOTE | 2018-10-29 06:08 | NUR ---
SUMMARY PT RESTING IN BED. HAS BEEN ON BIPAP ALL NIGHT WITH ONLY SHORT BREAKS FOR PILLS OR MOUTH CARE. PT GETS SOB QUICKLY WHEN OFF THE BIPAP AND GETS ANXIOUS QUICKLY. SETTINGS WERE CHANGED TO 12/7 AND FIO2 50%. NO OTHER CHANGES THROUGH THE NIGHT. PT IS ABLE TO USE CALL LIGHT FOR NEEDS.
--- NOTE | 2018-10-29 07:20 | NUR ---
START OF SHIFT NOTE: RECEIVED REPORT FROM MARY ANN GUSMAN, ASSUMED CARE, PATIENT IS AWAKE, BIPAP IN PLACE, SETTINGS: 01/20/50 %, PATIENT APPEARS VERY ANXIOUS, SHE IS ALERT AND ORIENTED, LUNGS SOUNDS ARE DIMINISHED WITH CRACKLES HEARD, NSR, HEART SOUNDS DISTANT, BOWEL TONES PRESENT, PATIENT NPO AT THIS TIME, BECOMES VERY ANXIOUS WHEN OFF BIPAP, NEEDS LOTS OF REASSURANCE, ABLE TO TAKE PILLS WITH BIPAP OFF FOR A FEW MINUTES, BUT THEN INCREASINGLY ANXIOUS AGAIN, RT AWARE AND SEEING PATIENT FREQUENTLY, DE SOUZA CATHETER IN PLACE, PATIENT HAS SURGICAL BOOT ON LEFT LOWER LEG, PEDAL PULSES STRONG AND PALPABLE, NAHEED PICC LINE DRESSING C/D/I, CALL LIGHT IN REACH, WILL CONINUE TO MONITOR.
--- NOTE | 2018-10-29 09:50 | NUR ---
DR. DUMAS IN TO SEE PATIENT, NO NEW ORDERS RECEIVED, PATIENT SHOWS SOME IMPROVEMENT, VSS, PATIENT CENTRAL OFFICE OPERATOR LIGHT, WHEN THIS RN ASKED WHAT SHE NEEDED PATIENT STATED "MAKE ME FEEL BETTER", THIS RN REASSURED PATIENT THAT SHE IS IMPROVING, PATIENT VERBALIZED UNDERSTANDING, CALL LIGHT IN REACH, WILL CONTINUE TO MONITOR.
--- NOTE | 2018-10-29 11:10 | NUR ---
CHANELL COLLIER RN, PALLIATIVE CARE IN TO SPEAK WITH FAMILY ABOUT PATIENT STATUS AND POSSIBLE CHANGE OF CODE STATUS, FAMILY WILL CONVENE AND LET US KNOW.
--- NOTE | 2018-10-29 11:12 | NUR ---
DR. ROSS IN TO SEE PATIENT, NO NEW ORDERS RECEIVED.
--- NOTE | 2018-10-29 11:37 | NUR ---
Pt visit this AM. Pt resting in bed and appears mildly anxious. Currently on BIPAP. Pt's daughters are at bedside and report questions but would like to discuss outside of Pt's room in order to reduce the risk of increase anxiety for Pt. Discussed case and plan for Pt. Engaged in therapeutic discussion regarding code status. Educated on life sustaining measures including risk factors. Daughters report they will discuss wishes with Pt and Pt's . Daughters inquire about hospice appropriatness. Dr Gaxiola involved with in conversation as well. Discussion was made at some point hospice may be appropriate but for now plan is to continue current treatment plan. Family reports no other concerns at this time. Instructed family to contact palliative care with any questions or concersn. Spoke with bedside nurse Mady and discussed case and conversation with family. Palliative Care will remain available.
--- NOTE | 2018-10-29 13:19 | NUR ---
PATIENT PLANTING MATERIAL CARRIER LIGHT, WHEN ASKED WHAT COULD BE DONE FOR HER PATIENT STATED "I NEED MORE AIR", PATIENT WAS REASSURED THAT HER OXYGENIATION IS GOOD AT 95 % ON BIPAP, AND THAT SHE IS DOING WELL, PATIENT VERBALIZED UNDERSTANDING, ORDERED LASIX DRIP STARTED PER PHARMACY SETTINGS, CALL LIGHT IN REACH, WILL CONTINUE TOMONITOR.
--- NOTE | 2018-10-29 13:31 | NUR ---
PATIENT DELI DEPARTMENT MANAGER LIGHT, REPOSITIONED PER PATIENT WISHES, CALL LIGHT IN REACH, WILL CONTINUE TO MONITOR.
--- NOTE | 2018-10-29 17:45 | NUR ---
SHIFT SUMMARY NOTE: NO ACUTE EVENTS DURING THIS SHIFT, PATIENT CONTINUES ON BIPAP SETTINGS: 17/5/50 %, O2 SATURATION IN MID 90'S, PATIENT SLEEPS MOSTLY, BRIEFLY AWAKE DURING FAMILY VISITS, RECEIVED TYLENOL 650 MG PO TWICE FOR PAIN IN LEFT ANKLE, ATTEMPTS TO REPOSITION PATIENT FAILED, SHE IS UNABLE TO TOLERATE ANY SIDE LYING POSITION, ABLE TO SWALLOW PILLS ONE AT A TIME WITH SOME SIPS OF WATER BUT BECOMES ANXIOUS WHEN OFF BIPAP TOO LONG, PATIENT IS NOW ON LASIX DRIP 40 MG/HR WITH RATE OF 20 ML/HR, URINE OUTPUT REMAINS MINIMAL, DR. DUMAS AWARE, PATIENT IS NPO, CHEMSTICKS CHANGED TO EVERY 6 HOURS, CHANELL COLLIER, PALLIATIVE CARE IN TO SPEAK WITH FAMILY ABOUT PATIENT STATUS, FAMILY WILL DISCUSS AND LET US KNOW ABOUT DECISION, FOR DETAILS SEE SHIFT ASSESSMENT DOCUMENTATION AND NURSES NOTES, CALL LIGHT IN REACH, WILL CONTINUE TO MONITOR.
--- NOTE | 2018-10-29 21:19 | NUR ---
PT RESTING IN BED. ON BIPAP. GETS ANXIOUS WITH MOUTH CARE WHEN OFF THE BIPAP FOR VERY SHORT BREAK. PLACED SAFETAC DRESSING TO BRIDGE OF NOSE THAT IS RED FROM BIPAP. TAKES PILLS WITHOUT DIFFICULTY WITH WATER. ON LASIX GTT. LOW URINE OUTPUT. COARSE CRACKLES T/O LUNGS. PT IS RESTLESS AND HAVE BEEN REPOSITIONING TRYING TO GET HER COMFORTABLE BUT OTHERWISE NO SIGN OF DISTRESS.
--- NOTE | 2018-10-30 00:35 | NUR ---
PT HAS BEEN ANXIOUS ALL NIGHT DESPITE KLONOPIN. CALLED DR. DUMAS WHO ORDERED OLANZAPINE. DOSE GIVEN.
[2018-10-30 03:48] LABS: Hematocrit 26.9 % (33.0-51.0); Hemoglobin 8.3 g/dL (11.5-16.0); Mean Corpuscular HGB 25.2 pg (26.0-34.0); Mean Corpuscular HGB Conc 30.9 g/dL (31.5-36.5); Mean Corpuscular Volume 82 fL (80-100); Mean Platelet Volume 9.3 fL (9.1-12.4); Platelet Count 198 K/mm3 (150-400); RDW Standard Deviation 66.5 fL (35.1-46.3); White Blood Cell Count 18.74 K/mm3 (4.00-11.30)
[2018-10-30 04:09] LABS: Anion Gap 9 mmol/L (6-16); Blood Urea Nitrogen 79 mg/dL (8-24); Bun/Creatinine Ratio 50.3 (12.0-20.0); CO2, Blood 26 mmol/L (21-32); Calcium, Blood 8.5 mg/dL (8.5-10.1); Chloride, Blood 103 mmol/L (98-108); Creatinine, Blood 1.57 mg/dL (0.40-1.00); Glomerular Filtration Rate 35 (60-); Glucose, Blood 104 mg/dL (70-99); Phosphorus, Blood 5.8 mg/dL (2.5-4.9); Potassium, Blood 4.1 mmol/L (3.5-5.5); Sodium, Blood 138 mmol/L (136-145)
[2018-10-30 04:15] LABS: BAND PERCENT MAN 1 % (0-8); BASOPHILS PERCENT MAN 0 % (0-2); EOSINOPHILS ABSOLUTE MAN 0.18 K/mm3 (0.00-0.68); EOSINOPHILS PERCENT MAN 1 % (0-6); LYMPHOCYTES ABSOLUTE MAN 0.93 K/mm3 (0.84-5.20); LYMPHOCYTES PERCENT MAN 5 % (21-46); MONOCYTES ABSOLUTE MAN 0.37 K/mm3 (0.16-1.47); MONOCYTES PERCENT MAN 2 % (4-13); MYELOCYTE ABSOLUTE MAN 0.18 K/mm3 (0.00-0.00); MYELOCYTE PERCENT MAN 1 % (0-0); NEUTROPHILS ABSOLUTE MAN 17.05 K/mm3 (1.96-9.15); SEG NEUTROPHILS PERCENT MAN 90 % (41-73); TOTAL CELLS COUNTED 100
--- NOTE | 2018-10-30 06:33 | NUR ---
SUMMARY PT WORE BIPAP ALL NIGHT. ONLY TAKES VERY SHORT BREAKS FOR PILLS OR MOUTH CARE. PT WAS REALLY ANXIOUS EARLIER IN THE NIGHT DESPITE GETTING KLONIPIN DOSES. RECEIVED ORDERS FOR ONE TIME DOSE OF OLANZAPINE FROM DR. DUMAS WHICH WORKED WELL FOR PT. AFTER OLANZAPINE PT WAS ABLE TO GET SOME SLEEP. LS CONTINUE TO HAVE CRACKLES T/O. WAS ON LASIX GTT UNTIL ABOUT 0100 BUT ONLY HAD 300ML OF URINE OUT. ON 1L FLUID RESTRICTION. NO OTHER CHANGES THIS SHIFT.
--- NOTE | 2018-10-30 11:00 | NUR ---
MET WITH PT'S THREE DAUGHTERS BEFORE AND AFTER SPEAKING WITH PT THIS AM. DAUGHTERS ARE TEARFUL, STRESSED ABOUT HAVING TO LEAVE. ALL LIVE OUT OF STATE. THEY REPORT THAT THEIR DAD IS HAVING MEMORY ISSUES AND ALSO IS NOT ABLE TO COMMUNICATE WELL DUE TO BEING ON [employer] POSSIBLY AND THEY WOULD LIKE THEIR MOM'S PLAN OF CARE MORE CLEAR. WE DISCUSSED AD AND POLST FORMS. DAUGHTERS WOULD LIKE ME TO COMPLETE THE POLST FOR PT. WE ALSO DISCUSSED BY [facility] [employer] AND OUR POLICY WHO OUR SURROGATE DECISION MAKERS WOULD BE IF PT WAS UNABLE TO COMMUNICATE TO US AND THEIR WERE NO WRITTEN INSTRUCTIONS TO THAT EFFECT. DAUGHTERS VERBALIZE UNDERSTANDING. WITH THREE DAUGHTERS AND MANY GRAND CHILDREN IN THE ROOM, I SPOKE TO PT RE: HER WISHES. SHE WAS ABLE TO ANSWER A FEW QUESTIONS TO CLARIFY THAT SHE WAS ORIENTED AND COMPREHENDING THE CONVERSATION. INITIALLY, SHE WAS ABLE TO FOLLOW AND RESPOND BUT BECAME SLEEPY FROM PAIN MEDICATION, GIVEN BEFORE MY VISIT FOR HER LEFT ANKLE PAIN. PT INDICATED THAT SHE WANTS CPR AND INTUBATION IF NEEDED. DAUGHTERS ARE CONCERNED THAT SHE DOES NOT UNDERSTAND THE CONSEQUENCES OF THESE CHOICES FULLY. I AGREED TO COME BACK THIS AFTERNOON AND DISCUSS FURTHER. WHILE I WAS SPEAKING WITH PT, RT CAME IN AND THEN THE DR FOR ROUNDING. WHEN ASKED IF HURTING, PT POINTED TO HER LEFT LOWER LEG. FAMILY STATES THAT SHE FX HER ANKLE AND JUST RECEIVED PAIN MEDICATION. PT HAS BIPAP ON AND IS UNABLE TO TOLERATE REMOVAL OF BIPAP EVEN FOR SHORT PERIODS TO TAKE PO MEDICATIONS. MY VISIT AND CONVERSATION SHARED WITH , RN, HAND ENGRAVER. PLAN TO RETURN FOR FOLLOW UP LATER TODAY. METAL FURNITURE PANEL COVERER ROUNDING IS PENDING AND SHE WILL HAVE MORE INFORMATION FOR THE PATIENT AND FAMILY TO BASE THEIR PLAN OF CARE ON. PT'S WAS NOT PRESENT DURING MY VISIT.
--- NOTE | 2018-10-30 13:43 | NUR ---
0730: CARE ASSUMED, ASSESSMENT COMPLETED. BIPAP ON AT 12/7, FIO2 50%. SPO2 >90%, PT REMAINS TACHYPNEIC AND ANXIOUS, WILL MEDICATE WITH KLONOPIN PER APR. HR 90'S-110'S, LS TIGHT BUT CLEAR, NO CRACKLES OR WHEEZES NOTED. URINE OUTPUT SCANT, EDEMA PRESENT. BP HYPOTENSIVE, WILL CONTINUE TO MONITOR. ORAL CARE AND CATH CARE COMPLETED, PT REPOSITIONED, LE'S ELEVATED, BOOT IN PLACE ON LLE. CMS WNL TO LLE. 0900: LEVOPHED INFUSING PER ORDERS FOR HYPOTENSION, PT RESPONDING WELL, WILL TITRATE INDICATED. PT TOLERATES PO MEDICATIONS WELL, BUT IS UNABLE TO REMAIN OFF OF BIPAP DUE TO DESAT AND ANXIETY, BIPAP REPLACED AFTER MEDS ADMINISTERED. DAUGHTERS AT BEDSIDE. ICE PACK TO LEFT ANKLE PER PT REQUEST. 1100: FAMILY AT BEDSIDE, REQUESTING PALLIATIVE CARE FOR ADVANCED DIRECTIVE DISCUSSION, ES IN PALLIATIVE NOTIFIED. PT REMAINS ANXIOUS, DR. CHONG CALLED, NEW ORDERS FOR PAIN AND ANXIOLYTICS RECEIVED, WILL ADMINISTER PER APR. 1300: 'S CODY AND LEYDA IN TO ASSESS, DISCUSSED CARE OPTIONS WITH PT AND PT FAMILY, ALL IN AGREEANCE WITH COMFORT CARE VS. INTUBATION AND DIALYSIS. COMFORT CARE ORDERS PLACED, BIPAP REMAINS ON PER PT PREFERENCE, MEDICATION INFUSIONS STOPPED. PT REPOSITIONED. 1330: ROXANOL ADMINISTERED PER ORDERS BY MARY ANN SUGGS. PT RESTING QUIETLY, HR 100-110, SPO2 AND BP MONITORING OFF. PT MEDICAL FLOOR STATUS.
--- NOTE | 2018-10-30 14:38 | NUR ---
HEPARIN BOLUS ADMINISTERED, HEPARIN INFUSING PER ORDERS. PT RESTING QUIETLY, NO AGITATION/RESTLESSNESS NOTED. VSS, LEVO AND PROPOFOL RATES UNCHANGED.
--- NOTE | 2018-10-30 14:49 | NUR ---
PT REQUESTING BIPAP MASK BE TAKEN OFF. MEDICATED WITH ROXANOL AND ATIVAN PER ORDERS. RT AT BEDSIDE FOR NEB TREATMENT, WILL REMOVE BIPAP AFTER TREATMENT COMPLETED. LS TIGHT, DIM IN BASES BILAT.
--- NOTE | 2018-10-30 14:56 | NUR ---
COMFORT CARE VISIT MADE. PT'S AT BEDSIDE NOW BUT SITTING IN THE CORNER. HE IS KNOWN TO ME FROM COMMUNITY. PT IS PULLING AT HER BIPAP MASK BUT WHEN OFF WANTS IT BACK ON DUE TO DYSPNEA AND ANXIETY. DISCUSSED WITH FAMILY AND RN'S PREMEDICATION BEFORE REMOVING MASK. PT CONFIRMED TO ME AND DAUGHTERS THAT SHE WANTS THE MASK OFF. I ASKED PT'S IF HE HAD ANY QUESTIONS AND IF IT WAS OK TO EXPLAIN TO HIM WHAT WAS HAPPENING WITH HIS . HE SAID YES. I REVIEWED HER MULTISYSTEMS FAILURE AND HER WISHES FOR COMFORT CARE. DISCUSSED ALL OF ABOVE WITH PT'S CM AND NURSES. PLAN IS TO GIVE PT ATIVAN AND ROXINAL PER EMAR BEFORE ATTEMPTING TO D/C BIPAP PER PT'S WISHES FOR COMFORT. PLAN TO F/U WITH PT/FAMILY AND CM IN AM.
--- NOTE | 2018-10-30 15:18 | NUR ---
BIBAP MASK REMOVED. PT APPEARS TO BE SLEEPING. RESP SHALLOW, UNLABORED. FAMILY AT BEDSIDE.
--- NOTE | 2018-10-30 15:36 | NUR ---
PT MEDICATED c ZOFRAN 4 MG IVP FOR NAUSEA. FAMILY AT BEDSIDE. PT CYANOTIC c AGONAL RESP. PALLATIVE CARE AT BEDSIDE. SPIRITAL CARE NOTIFIED.
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
--- NOTE | 2018-10-30 16:10 | NUR ---
PAL CARE COMFORT CARE VISIT MADE JUST PRIOR TO PT'S AND VISITED WITH FAMILY AFTERWARDS TO SUPPORT THEM. PT HAD AGONAL BREATHING WITHIN MINUTES OF BIPAP DISCONTINUANCE. EXPLAINED S/S OF IMPENDING TO MULTIPLE FAMILY MEMBERS AND ENCOURAGED THEM TO KEEP TALKING TO PT, EXPRESSING THEIR LOVE IF THEY FELT LIKE IT. GAVE THEM PRIVACY A FAMILY. MET WITH THEM AGAIN THEY WERE LEAVING THE UNIT.
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
--- NOTE | 2018-10-30 18:40 | NUR ---
1540: PT BECAME APNEIC AFTER BIPAP WAS REMOVED, HR BRADYCARDIC, THEN WENT TO ASYSTOLE. FAMILY AT BEDSIDE, CALLED AT 1540 BY MARY ANN LUCAS. GERALD ROSS AND LEYDA NOTIFIED, FINAL DC INITIATED BY MARY ANN LUCAS. 1620: INFORMATION REQUESTED BY [facility] FAXED AT THIS TIME. PERSONAL BELONGONGS SENT HOME WITH PT'S SPOUSE AND DAUGHTERS WHO HAVE LEFT BUILDING. NO PREFERRED MORTUARY PER PT'S SPOUSE, NURSING HUMAN RESOURCES TECHNICIAN NOTIFIED. PT WILL BE SENT TO [facility] DIRECTORS PER PROTOCOL. 1745: DONOR LINE CALLED FOR UPDATE AND ETA OF DECISION, REPORT THEY WILL MAKE THIS PATIENT A PRIORITY. PT CLEANED UP, DE SOUZA AND PICC LINE REMOVED, DENTURES PLACED IN MOUTH.
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
== END 2018-10-30 15:40 ==
LOC: ER 13:48 → PCU 18:11 → MEDS 10-24 15:57 → ICUW 10-25 03:41 → PCU 10-26 04:12 → ICUW 10-28 15:47
PROVIDERS: Emergency Medicine; Family Medicine; Internal Medicine; Internal Medicine Cardiovascular Disease; Internal Medicine Critical Care Medicine; Internal Medicine Gastroenterology; Pharmacist; ADMIT Internal Medicine
PROC: 5A09357 Assistance with Respiratory Ventilation, Less than 24 Consecutive Hours, Continuous Positive Airway Pressure (ICD-10-PCS; 2018-10-20)
PROC: 0DJ08ZZ Inspection of Upper Intestinal Tract, Via Natural or Artificial Opening Endoscopic (ICD-10-PCS; principal; 2018-10-20 09:30)
PROC: B2111ZZ Fluoroscopy of Multiple Coronary Arteries using Low Osmolar Contrast (ICD-10-PCS; 2018-10-21)
PROC: 3E033XZ Introduction of Vasopressor into Peripheral Vein, Percutaneous Approach (ICD-10-PCS; 2018-10-30)
DX: I21.4 Non-ST elevation (NSTEMI) myocardial infarction (principal); J96.01 Acute respiratory failure with hypoxia; I50.33 Acute on chronic diastolic (congestive) heart failure; R65.21 Severe sepsis with septic shock; N39.0 Urinary tract infection, site not specified; Z68.41 Body mass index [BMI] 40.0-44.9, adult; K76.6 Portal hypertension; E66.2 Morbid (severe) obesity with alveolar hypoventilation; N17.9 Acute kidney failure, unspecified; I25.110 Atherosclerotic heart disease of native coronary artery with unstable angina pectoris; Z51.5 Encounter for palliative care; Z79.4 Long term (current) use of insulin; E03.9 Hypothyroidism, unspecified; Z79.82 Long term (current) use of aspirin; E11.42 Type 2 diabetes mellitus with diabetic polyneuropathy; I77.9 Disorder of arteries and arterioles, unspecified; K74.60 Unspecified cirrhosis of liver; I27.20 Pulmonary hypertension, unspecified; Z86.73 Personal history of transient ischemic attack (TIA), and cerebral infarction without residual deficits; K75.81 Nonalcoholic steatohepatitis (NASH); S82.892A Other fracture of left lower leg, initial encounter for closed fracture; B96.20 Unspecified Escherichia coli [E. coli] as the cause of diseases classified elsewhere; D50.9 Iron deficiency anemia, unspecified; F32.9 Major depressive disorder, single episode, unspecified; D69.6 Thrombocytopenia, unspecified; I95.9 Hypotension, unspecified; K21.9 Gastro-esophageal reflux disease without esophagitis; I11.0 Hypertensive heart disease with heart failure; W19.XXXA Unspecified fall, initial encounter; Y92.9 Unspecified place or not applicable
CPT/HCPCS: 36415; 36430; 36569; 51702; 71045; 71046; 73562-LT; 73562-RT; 73610; 74177; 76937; 80048; 80053; 80061; 80069; 80202; 81001; 82272; 82607; 82728; 82746; 82947; 83036; 83540; 83550; 83690; 83880; 84145; 84443; 84450; 84460; 84484; 85007; 85014; 85018; 85025; 85027; 85347; 85610; 85730; 86704; 86708; 86803; 86850; 86900; 86901; 86923; 87070; 87077; 87086; 87186; 87205; 87340; 93005; 93010; 93306; 93454; 93571; 94640; 94660; 94762; 96365-59; 96372-59; 96375; 97110; 97162; 97530; 99152; 99153; 99285-25; A9270; C1751; C1769; C1887; C1894; C9113; J0696; J1644; J1650; J1940; J1956; J2250; J2270; J2405; J2543; J2704; J3010; J3370; J7030; J7040; J7050; J7060; J7120; P9016; P9046; P9612; Q9967